=== PATIENT | female | born 1970 | race Caucasian/White ===

== ENCOUNTER 2018-10-30 00:47 | Emergency (ER) | payer SELFPAY ==
[2018-10-30] MEDS ORDERED: Cyclobenzaprine 10 MG TAB ONE (03:02)
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
== END 2018-10-30 03:07 | disposition home or self-care (01) ==
LOC: ERS 00:47
DX: S16.1XXA Strain of muscle, fascia and tendon at neck level, initial encounter (principal); Y04.8XXA Assault by other bodily force, initial encounter
CPT/HCPCS: 70450; 70486; 72125